=== PATIENT | female | born 1990 | race Caucasian/White ===

== ENCOUNTER 2018-01-07 15:09 | Outpatient (CLI) | payer BC ==
[2018-01-07 16:02] LABS: APPEARANCE,URINE CLEAR; BILIRUBIN,URINE NEGATIVE (NEGATIVE); COLOR,URINE YELLOW; GLUCOSE, URINE NEGATIVE (NEGATIVE); KETONES,URINE NEGATIVE (NEGATIVE); LEUKOCYTE ESTERASE,URINE NEGATIVE (NEGATIVE); NITRITE,URINE NEGATIVE (NEGATIVE); PROTEIN,URINE NEGATIVE (NEGATIVE); URINE SPECIFIC GRAVITY 1.026
[2018-01-07 16:25] LABS: URINE AMPHETAMINES SCREEN NEGATIVE; URINE BARBITURATES SCREEN NEGATIVE; URINE BENZODIAZEPINES SCREEN NEGATIVE; URINE COCAINE SCREEN NEGATIVE; URINE MARIJUANA (THC) SCREEN NEGATIVE; URINE METHADONE SCREEN NEGATIVE; URINE PHENCYCLIDINE SCREEN NEGATIVE
== END 2018-01-07 16:25 | disposition home or self-care (01) ==
LOC: LC 15:09
PROVIDERS: ATTEND Obstetrics & Gynecology
PROC: 4A1HXCZ Monitoring of Products of Conception, Cardiac Rate, External Approach (ICD-10-PCS; principal; 2018-01-07)
DX: O47.02 False labor before 37 completed weeks of gestation, second trimester (principal); Z3A.24 24 weeks gestation of pregnancy
CPT/HCPCS: 80307; 81001

== ENCOUNTER 2018-01-08 03:18 | Emergency (ER) | payer BC ==
--- NOTE | 2018-01-08 04:30 | ER Document Report ---
ED General - General Mode of Arrival: Ambulatory Information source: Patient TRAVEL OUTSIDE OF THE [place] IN LAST 30 DAYS: No <BRY SANDOVAL - Last Filed: 01/08/18 04:58> <AMY BOLANOS - Last Filed: 01/09/18 15:53> - General Chief Complaint: Abdominal Pain Stated Complaint: ABDOMINAL PAIN Time Seen by Provider: 01/08/18 04:13 Notes: Patient is a 28-year-old female approximately 24 weeks presents the emergency department complaining of right lower quadrant pain onset around 11 AM yesterday. Patient describes the abdominal pain as a waxing and waning that radiates into her back. She states that she has taken Tylenol with no relief. She also complains of clamminess and nausea. Patient denies any vomiting, diarrhea, vaginal discharge, dysuria, burning with urination. Patient states that she went to labor and delivery yesterday complaining of similar symptoms and was discharged with a diagnosis of dehydration. (BRY SANDOVAL) - Related Data Allergies/Adverse Reactions: No Known Allergies Allergy (Unverified 01/07/18 16:27) Past Medical History - General Information source: Patient - Social History Smoking Status: Never Smoker Chew tobacco use (# tins/day): No Frequency of alcohol use: None Drug Abuse: None Family History: Reviewed & Not Pertinent Patient has suicidal ideation: No Patient has homicidal ideation: No Renal/ Medical History: Reports: Hx Kidney Stones <BRY SANDOVAL - Last Filed: 01/08/18 04:58> Review of Systems - Review of Systems Constitutional: See HPI EENT: No symptoms reported Cardiovascular: No symptoms reported Respiratory: No symptoms reported Gastrointestinal: See HPI, Abdominal pain Genitourinary: No symptoms reported Female Genitourinary: No symptoms reported Musculoskeletal: No symptoms reported Skin: No symptoms reported Hematologic/Lymphatic: No symptoms reported Neurological/Psychological: No symptoms reported -: Yes All other systems reviewed and negative <BRY SANDOVAL - Last Filed: 01/08/18 04:58> Physical Exam <BRY SANDOVAL - Last Filed: 01/08/18 04:58> <AMY BOLANOS - Last Filed: 01/09/18 15:53> - Vital signs Vitals: Temp Pulse Resp BP Pulse Ox 98.6 F 91 18 127/74 H 100 10/06/18 03:23 01/08/18 03:23 01/08/18 03:23 01/08/18 03:23 01/08/18 03:23 - Notes Notes: GENERAL: Alert, interacts well. No acute distress. HEAD: Normocephalic, atraumatic. EYES: Pupils equal, round, and reactive to light. Extraocular movements intact. ENT: Oral mucosa moist, tongue midline. NECK: Full range of motion. Supple. Trachea midline. LUNGS: Clear to auscultation bilaterally, no wheezes, rales, or rhonchi. No respiratory distress. HEART: Regular rate and rhythm. No murmurs, gallops, or rubs. ABDOMEN: Gravid, tender to palpation to the McBurney's point, no guarding or rebound. Bowel sounds present in all 4 quadrants. EXTREMITIES: Moves all 4 extremities spontaneously. NEUROLOGICAL: Alert and oriented x3. Normal speech. Negative Rovsing's, psoas and obturator sign. PSYCH: Normal affect, normal mood. SKIN: Warm, dry, normal turgor. No rashes or lesions noted. BACK: No CVA tenderness to palpation. (BRY SANDOVAL) Course <BRY SANDOVAL - Last Filed: 01/08/18 04:58> - Laboratory Result Diagrams: 01/08/18 04:15 01/08/18 04:15 <AMY BOLANOS - Last Filed: 01/09/18 15:53> - Re-evaluation Re-evalutation: 01/08/18 05:46 Ultrasound does not visualize appendix. Patient's inflammatory markers including her white blood cell count and her CRP are within normal limits. She has not had any vaginal discharge loss of fluids or contractions. She was seen by her OB GEN yesterday with normal heart tones. No UTI. Patient has normal vitals and she is not febrile. I discussed findings with patient. She did not have a obturator sign,Rovsing sign or psoas sign. She did have some tenderness to palpation in her right lower quadrant around McBurney's point. I discussed with her she needs follow-up in the next 24-36 hours for reevaluation or sooner if she begins to develop any fevers chills or vomiting. She does endorse that her bowel movements and not been as regular as a normal sized her to drink plenty of water and to be reevaluated with return precautions provided. The fact that her symptoms have been going on since yesterday and she has no fever no vomiting no inflammatory markers felt that imaging was not warranted at this time. Patient understands and agrees with plan of reevaluation. 01/08/18 05:49 01/08/18 05:49 (AMY BOLANOS) - Vital Signs Vital signs: Temp Pulse Resp BP Pulse Ox 98.4 F 90 18 118/68 100 01/08/18 06:32 01/08/18 06:32 01/08/18 06:32 01/08/18 06:32 01/08/18 06:32 - Laboratory Laboratory results interpreted by me: 01/08/18 01/08/18 04:15 04:15 RBC 3.41 L Hgb 10.9 L Hct 31.0 L Chloride 111 H Carbon Dioxide 21 L Creatinine 0.41 L Total Protein 6.1 L Albumin 2.9 L Discharge <BRY SANDOVAL - Last Filed: 01/08/18 04:58> <AMY BOLANOS - Last Filed: 01/09/18 15:53> - Discharge Clinical Impression: Abdominal pain during intrauterine Condition: Good Disposition: HOME, SELF-CARE Instructions: Abdominal Pain ([facility]), Observation for Appendicitis ([facility]) Additional Instructions: Please follow-up in the next 24-36 hours for reevaluation or sooner if you begin to develop any fevers chills nausea or worsening of pain Referrals: BRANDON HERNANDEZ MD [Primary Care Provider] - Follow up as needed Scribe Attestation: 01/09/18 15:52 I personally performed the services described in the documentation, reviewed and edited the documentation which was dictated to the scribe in my presence, and it accurately records my words and actions. (AMY BOLANOS) Scribe Documentation - Scribe Written by Brian:: Brian Ortiz, 01/08/2018 04:32 acting as scribe for :: Frederick <BRY SANDOVAL - Last Filed: 01/08/18 04:58>
[2018-01-08 05:09] LABS: ABSOLUTE EOSINOPHILS # (AUTO) 0.1 10^3/uL (0.0-0.6); ABSOLUTE LYMPHOCYTES (AUTO) 1.5 10^3/uL (0.5-4.7); ABSOLUTE MONOCYTES (AUTO) 0.5 10^3/uL (0.1-1.4); ABSOLUTE NEUT (AUTO) 4.6 10^3/uL (1.7-8.2); BASOPHILS % (AUTO) 0.5 % (0-2); EOSINOPHILS % (AUTO) 0.8 % (0-6); HEMOGLOBIN 10.9 g/dL (12.0-15.5); MEAN CORPUSCULAR HEMOGLOBIN 31.9 pg (27.0-33.4); MEAN CORPUSCULAR HGB CONC 35.1 g/dL (32.0-36.0); MEAN CORPUSCULAR VOLUME 91 fl (80-97); MONOCYTES % (AUTO) 7.2 % (3-13); PLATELET COUNT 207 10^3/uL (150-450); RED BLOOD COUNT 3.41 10^6/uL (3.72-5.28); RED CELL DISTRIBUTION WIDTH 13.4 % (11.5-14.0); SEGMENTED NEUTROPHILS % (AUTO) 69.5 % (42-78); TOTAL CELLS COUNTED % (AUTO) 100 %; WHITE BLOOD COUNT 6.6 10^3/uL (4.0-10.5)
[2018-01-08 05:18] LABS: ALANINE AMINOTRANSFERASE 28 U/L (9-52); ALBUMIN 2.9 g/dL (3.5-5.0); ALKALINE PHOSPHATASE 69 U/L (38-126); ANION GAP 7 (5-19); ASPARTATE AMINO TRANSFERASE 28 U/L (14-36); BILIRUBIN,DIRECT 0.3 mg/dL (0.0-0.4); BILIRUBIN,TOTAL 0.3 mg/dL (0.2-1.3); BLOOD UREA NITROGEN 9 mg/dL (7-20); C-REACTIVE PROTEIN 7.6 mg/L (<10.0); CALCIUM 8.5 mg/dL (8.4-10.2); CARBON DIOXIDE 21 mmol/L (22-30); CHLORIDE 111 mmol/L (98-107); GLUCOSE 91 mg/dL (75-110); LIPASE 85.8 U/L (23-300); POTASSIUM 3.8 mmol/L (3.6-5.0); SODIUM 138.6 mmol/L (137-145); TOTAL PROTEIN 6.1 g/dL (6.3-8.2)
[2018-01-08 05:25] LABS: APPEARANCE,URINE CLEAR; BILIRUBIN,URINE NEGATIVE (NEGATIVE); COLOR,URINE YELLOW; GLUCOSE, URINE NEGATIVE (NEGATIVE); KETONES,URINE NEGATIVE (NEGATIVE); LEUKOCYTE ESTERASE,URINE NEGATIVE (NEGATIVE); NITRITE,URINE NEGATIVE (NEGATIVE); PROTEIN,URINE NEGATIVE (NEGATIVE); URINE SPECIFIC GRAVITY 1.015; UROBILINOGEN,URINE NEGATIVE mg/dL (<2.0)
--- NOTE | 2018-01-08 05:28 | RADIOLOGY REPORT (SQ) ---
EXAM DESCRIPTION: US ABDOMEN DOPPLER LIMITED COMPLETED DATE/TME: 01/08/2018 04:23 CLINICAL HISTORY: 28 years, Female, RLQ pain COMPARISON: None. TECHNIQUE: Ultrasound images of the right lower quadrant. FINDINGS: The appendix is not identified. No free fluid identified. IMPRESSION: 1. The appendix is not visualized. No secondary sonographic signs of acute appendicitis. 2011 [facility] [employer]- All Rights Reserved
[2018-01-08 06:38] VITALS: BP 118/68
== END 2018-01-08 06:38 | disposition home or self-care (01) ==
LOC: ER 03:18
DX: O26.892 Other specified pregnancy related conditions, second trimester (principal); R10.31 Right lower quadrant pain; R11.0 Nausea; Z3A.24 24 weeks gestation of pregnancy
CPT/HCPCS: 36415; 76705; 80053; 81001; 83690; 85025; 86140; 93976; 99284

== ENCOUNTER → 2018-03-07 | Outpatient (CLI) | payer BC | LOC: OD 11:03 | PROVIDERS: ATTEND Obstetrics & Gynecology | DX: R07.0 Pain in throat (principal) | CPT/HCPCS: 87070; 87880 ==

== ENCOUNTER 2018-05-03 20:12 | Inpatient (IN) | payer BC ==
[2018-05-03] MEDS: RINGERS SOLUTION,LACTATED 1,000 ML IV PRN (20:59)
[2018-05-03 21:20] LABS: APPEARANCE,URINE SLIGHTLY-CLOUDY; BILIRUBIN,URINE NEGATIVE (NEGATIVE); COLOR,URINE YELLOW; GLUCOSE, URINE NEGATIVE (NEGATIVE); KETONES,URINE NEGATIVE (NEGATIVE); LEUKOCYTE ESTERASE,URINE TRACE (NEGATIVE); NITRITE,URINE NEGATIVE (NEGATIVE); PROTEIN,URINE 100 mg/dL (NEGATIVE); URINE SPECIFIC GRAVITY 1.024; UROBILINOGEN,URINE NEGATIVE mg/dL (<2.0)
[2018-05-03 21:25] LABS: ABSOLUTE LYMPHOCYTES (AUTO) 1.2 10^3/uL (0.5-4.7); ABSOLUTE MONOCYTES (AUTO) 0.6 10^3/uL (0.1-1.4); ABSOLUTE NEUT (AUTO) 6.8 10^3/uL (1.7-8.2); BASOPHILS % (AUTO) 0.3 % (0-2); EOSINOPHILS % (AUTO) 0.3 % (0-6); HEMATOCRIT 28.6 % (36.0-47.0); HEMOGLOBIN 9.6 g/dL (12.0-15.5); LYMPHOCYTES % (AUTO) 13.7 % (13-45); MEAN CORPUSCULAR HEMOGLOBIN 28.5 pg (27.0-33.4); MEAN CORPUSCULAR HGB CONC 33.7 g/dL (32.0-36.0); MEAN CORPUSCULAR VOLUME 85 fl (80-97); MONOCYTES % (AUTO) 6.7 % (3-13); PLATELET COUNT 127 10^3/uL (150-450); RED BLOOD COUNT 3.39 10^6/uL (3.72-5.28); RED CELL DISTRIBUTION WIDTH 13.9 % (11.5-14.0); TOTAL CELLS COUNTED % (AUTO) 100 %; WHITE BLOOD COUNT 8.6 10^3/uL (4.0-10.5)
[2018-05-03 21:50] LABS: URINE AMPHETAMINES SCREEN NEGATIVE; URINE BARBITURATES SCREEN NEGATIVE; URINE BENZODIAZEPINES SCREEN NEGATIVE; URINE COCAINE SCREEN NEGATIVE; URINE MARIJUANA (THC) SCREEN NEGATIVE; URINE METHADONE SCREEN NEGATIVE; URINE PHENCYCLIDINE SCREEN NEGATIVE
[2018-05-03] MEDS ORDERED: OXYTOCIN/NORMAL SALINE 20 UNIT/1,000 ML RTUINJ IV PRN (21:56)
[2018-05-03] MEDS ORDERED: DINOPROSTONE 10 MG VAGINAL INSERT.SR PV PRN (21:56)
[2018-05-03] MEDS ORDERED: MISOPROSTOL 0.2 MG TABLET ONE (22:03)
[2018-05-03] MEDS ORDERED: LIDOCAINE 1% INJ-PF (10 MG/ML) 30 ML SDV ONE (22:04)
[2018-05-03] MEDS ORDERED: DINOPROSTONE 10 MG VAGINAL INSERT.SR ONE (22:04)
[2018-05-03] MEDS ORDERED: OXYTOCIN/NORMAL SALINE 20 UNIT/1,000 ML RTUINJ ONE (22:04)
[2018-05-03] MEDS ORDERED: RINGERS SOLUTION,LACTATED 300 ML IV ONE (22:40)
[2018-05-04] MEDS ORDERED: ZOLPIDEM TARTRATE 5 MG TABLET ONE (01:39)
[2018-05-04] MEDS: RINGERS SOLUTION,LACTATED 1,000 ML IV PRN ×2 (05:02→21:05)
--- NOTE | 2018-05-04 06:56 | Admission Physical ---
Datetime Report Generated by CPN: 05/04/2018 06:56 CURRENT ADMISSION Chief Complaint: Uterine Contractions Indication for Induction: Post Dates Admit Impression : Term, Intrauterine ; No Active Labor; Induction of Labor Admit Plan: Admit to Unit; Initiate Labor Induction Protocol ALLERGIES Medication Allergies: No Medication Allergies: No Known Allergies (05/03/2018) Food Allergies: NKA Environmental Allergies: NKA OBSTETRICAL HISTORY EDC: 04/27/2018 00:00 : 1 Para: 0 Term: 0 : 0 SAB: 0 IAB: 0 Ectopic: 0 Livin Cesareans: 0 VBACs: 0 Multiple Births: 0 Gestational Diabetes: No Rh Sensitization: No Incompetent Cervix: No ERNIE: No Infertility: No ART Treatment: No Uterine Anomaly: No IUGR: No Hx Previous C/S: No Macrosomia: No Hx Loss/Stillborn: No PIH: No Hx : No Placenta Previa/Abruption: No Depression/PP Depression: No PTL/PROM: No Post Hemorrhage: No Current Procedures: Ultrasound; NST Obstetrical History Comments: G1 - Current SEE RECORDS Alcohol: No Marijuana : No Cocaine: No Other Illicit Drugs: No Cigarettes: Former Smoker. [id number] MEDICAL HISTORY Diabetes: No Blood Transfusion: No Pulmonary Disease (Asthma, TB): No Breast Disease: No Hypertension: No Production Crew Supervisor Surgery: No Heart Disease: No Hosp/Surgery: Yes Autoimmune Disorder: No Anesthetic Complications: No Kidney Disease: No Abnormal Pap Smear: No Neuro/Epilepsy: No Psychiatric Disorders: No Other Medical Diseases: No Hepatitis/Liver Disease: No Significant Family History: No Varicosities/Phlebitis: No Trauma/Violence : No Thyroid Dysfunction: No Medical History Comments: Hospitalization in 2008 for kidney infection INFECTIOUS HISTORY Gonorrhea: No Genital Herpes: No Chlamydia: No Tuberculosis: No Syphilis: No Hepatitis: No HIV/AIDS Exposure: No Rash or Viral Illness: No HPV: No PHYSICAL EXAM General: Normal HEENT: Normal Neurologic: Normal Thyroid: Normal Heart: Normal Lungs: Normal Breast: Normal Back: Normal Abdomen: Normal Genitourinary Exam: Normal Extremities: Normal DTRs: Normal Pelvic Type: Adequate Vital Signs: Reviewed; Within Normal Limits VAGINAL EXAM Dilatation: 1 Effacement: 50 Station: -3 MEMBRANES Pooling: Negative Membranes: Intact FETUS A EGA: 41.0 Monitoring: External US FHR- Baseline: 130 Variability: Moderate 6-25bpm Accelerations: 15X15 Decelerations: None FHR Category: Category I Estimated Weight (gm): 3500 Presentation: Vertex Admit Comment: cervidil for cervical ripening PLANS FOR LABOR AND DELIVERY Labor and Delivery: None Pain Management: Epidural Feeding Preference: Breast Benefit of Breast Feed Discussed: Yes Circumcision: N/A INFORMED CONSENT Signature: with User ID: [email or web address]
[2018-05-04] MEDS ORDERED: OXYTOCIN/NORMAL SALINE 20 UNIT/1,000 ML RTUINJ ONE (10:27)
[2018-05-04] MEDS ORDERED: PROMETHAZINE HCL INJ 25 MG/1 ML VIAL IV ONE ×2 (11:21→19:36)
[2018-05-04] MEDS ORDERED: NALBUPHINE HCL INJ 10 MG/1 ML AMPULE IV ONE (11:21)
[2018-05-04] MEDS ORDERED: NALBUPHINE HCL INJ 10 MG/1 ML AMPULE IM ONE (11:21)
[2018-05-04] MEDS ORDERED: PROMETHAZINE HCL INJ 25 MG/1 ML VIAL ONE ×2 (11:23→19:39)
[2018-05-04] MEDS ORDERED: NALBUPHINE HCL INJ 10 MG/1 ML AMPULE ONE ×2 (11:24→19:39)
[2018-05-04 16:45] LABS: ABSOLUTE LYMPHOCYTES (AUTO) 1.3 10^3/uL (0.5-4.7); ABSOLUTE MONOCYTES (AUTO) 0.6 10^3/uL (0.1-1.4); ABSOLUTE NEUT (AUTO) 7.8 10^3/uL (1.7-8.2); BASOPHILS % (AUTO) 0.3 % (0-2); EOSINOPHILS % (AUTO) 0.3 % (0-6); HEMATOCRIT 30.4 % (36.0-47.0); HEMOGLOBIN 10.3 g/dL (12.0-15.5); MEAN CORPUSCULAR HEMOGLOBIN 28.3 pg (27.0-33.4); MEAN CORPUSCULAR HGB CONC 33.9 g/dL (32.0-36.0); MEAN CORPUSCULAR VOLUME 84 fl (80-97); MONOCYTES % (AUTO) 6.6 % (3-13); PLATELET COUNT 133 10^3/uL (150-450); RED BLOOD COUNT 3.64 10^6/uL (3.72-5.28); SEGMENTED NEUTROPHILS % (AUTO) 79.8 % (42-78); TOTAL CELLS COUNTED % (AUTO) 100 %; WHITE BLOOD COUNT 9.7 10^3/uL (4.0-10.5)
[2018-05-04] MEDS ORDERED: NALBUPHINE HCL INJ 10 MG/1 ML AMPULE INJ ONE (19:36)
[2018-05-04] MEDS ORDERED: FENTANYL CITRATE INJ/PF 100 MCG/2 ML AMPUL ONE (23:26)
[2018-05-04] MEDS ORDERED: PHENYLEPHRINE HCL INJ/PF 10 MG/1 ML SDV ONE (23:26)
[2018-05-04] MEDS ORDERED: EPHEDRINE SULFATE INJ 50 MG/1 ML AMPULE ONE (23:26)
[2018-05-04] MEDS ORDERED: FENTANYL/BUPIVACAINE/NS/PF 300 MCG/150 ML RTUINJ EPI ONE (23:26)
[2018-05-04] MEDS ORDERED: LIDOCAINE 1.5%/EPINEPHRINE INJ-PF 30 ML SDV ONE (23:26)
[2018-05-04] MEDS ORDERED: BUPIVACAINE HCL 0.25 % INJ/PF (2.5 MG/1 ML) 30 ML VIAL ONE (23:27)
--- NOTE | 2018-05-05 02:46 | L&D Progress Notes ---
PROGRESS NOTES Datetime Report Generated by CPN: 05/05/2018 02:45 PROGRESS NOTE Impression: Normal Progression of Labor Plan: Continue Present Management Vital Signs : Reviewed; Within Normal Limits Comment: Pt is comfortable--s/p epidural VAGINAL EXAM Dilatation: 1 Effacement: 50 Station: -3 LAST VAGINAL EXAM-NURSING Dilitation: 6.0 Dilitation: 6.0 Dilitation: 4.0 Dilitation: 3.0 Dilitation: 1.0 Dilitation: 1.0 Effacement: 90 Effacement: 90 Effacement: 70 Effacement: 70 Effacement: 60 Effacement: 50 Station: -2 Station: -2 Station: -2 Station: -2 Station: -2 Station: -3 Contractions: Pt denies feeling ctx's Contractions: Abdomen soft upon palpation. Contractions: Abdomen soft upon palpation Contractions: Pt denies feeling ctx's Contractions: Pt denies feeling ctx's; Irregular pattern Contractions: Pt denies feeling ctx's, abdomen soft upon palpation. Contractions: Pt denies feeling ctx's, abdomen soft upon palpation. Contractions: Pt denies feeling ctx's, abdomen soft upon palpation. Contractions: Pt denies feeling ctx's, abdomen soft upon palpation. Contractions: Pt denies feeling ctx's, abdomen soft upn palpation. Contractions: Pt denies feeling ctx's, abdomen soft upon palpation. Contractions: Pt denies feeling ctx's, abdomen soft upon palpation. Contractions: Pt denies feeling ctx's, irregular ctx pattern Contractions: Pt denies feeling ctx's, abdomen soft upon palpation. Contractions: Pt denies feeling ctx's, irregular ctx pattern Contractions: Pt denies feeling ctx's Contractions: Pt denies feeling ctx's, abdomen soft upon palpation. Contractions: Pt denies feeling ctx's, abdomen soft upon palpation. Contractions: Pt denies feeling ctx's Contractions: Pt denies feeling ctx's, abdomen soft upon palpation. MEMBRANES Pooling: Negative Membranes: Ruptured Membranes: Intact FETUS A FHR - Baseline: 120s Monitoring: External US Variability: Moderate 6-25bpm Accelerations: 10X10 Decelerations: None FHR Category: Category I : 41.1 : 41.0 Estimated Weight (gm): 3500 Presentation: Vertex SIGNATURE SIGNATURE: [id number];[id number] SIGNATURE: [id number] Signature: with User ID: [email or web address]
--- NOTE | 2018-05-05 10:07 | L&D Progress Notes ---
PROGRESS NOTES Datetime Report Generated by CPN: 05/05/2018 10:07 PROGRESS NOTE Impression: Arrest of Dilatation/Descent Procedures: Intrauterine Pressure Catheter Plan: Continue Present Management Vital Signs : Reviewed Comment: SVE 09-09/80/0--?cx swelling. IUPC inserted without difficulty. Will monitor over next 2 hrs-if no cervical change and adequate labor, will notify MD re arrest of labor. VAGINAL EXAM Dilatation: 7 Effacement: 80 Station: 0 Dilitation: 7.0 Dilitation: 7.0 Effacement: 100 Effacement: 100 Station: -1 Station: -1 Contractions: IUPC inserted by Tracie Milan CNM MEMBRANES Membranes: Ruptured FETUS A FHR - Baseline: 140 Monitoring: External US : 41.1 FETUS C SIGNATURE: [id number] Assignment: Mega Cordoba MD Signature: with User ID: [email or web address] : with User ID: [email or web address] : I personally evaluated and examined the patient in conjunction with the MLP and agree with the assessment, treatment plan and disposition.
[2018-05-05] MEDS ORDERED: ACETAMINOPHEN 325 MG TABLET ONE (10:24)
[2018-05-05] MEDS ORDERED: ACETAMINOPHEN 325 MG TABLET PO ONE (10:27)
[2018-05-05] MEDS ORDERED: ONDANSETRON HCL INJ/PF 4 MG/2 ML SDV IV ONE (10:30)
[2018-05-05] MEDS ORDERED: ONDANSETRON HCL INJ/PF 4 MG/2 ML SDV ONE ×2 (10:33→13:38)
[2018-05-05 10:51] LABS: HEMATOCRIT 29.8 % (36.0-47.0); HEMOGLOBIN 9.9 g/dL (12.0-15.5); MEAN CORPUSCULAR HEMOGLOBIN 27.7 pg (27.0-33.4); MEAN CORPUSCULAR HGB CONC 33.1 g/dL (32.0-36.0); MEAN CORPUSCULAR VOLUME 84 fl (80-97); PLATELET COUNT 123 10^3/uL (150-450); RED BLOOD COUNT 3.56 10^6/uL (3.72-5.28); RED CELL DISTRIBUTION WIDTH 14.2 % (11.5-14.0); WHITE BLOOD COUNT 12.1 10^3/uL (4.0-10.5)
[2018-05-05] MEDS: RINGERS SOLUTION,LACTATED 1,000 ML IV PRN (11:04)
[2018-05-05 11:08] LABS: ALANINE AMINOTRANSFERASE 28 U/L (9-52); ALKALINE PHOSPHATASE 171 U/L (38-126); ANION GAP 7 (5-19); ASPARTATE AMINO TRANSFERASE 25 U/L (14-36); BILIRUBIN,DIRECT 0.1 mg/dL (0.0-0.4); BILIRUBIN,TOTAL 0.4 mg/dL (0.2-1.3); BLOOD UREA NITROGEN 14 mg/dL (7-20); CALCIUM 8.3 mg/dL (8.4-10.2); CARBON DIOXIDE 22 mmol/L (22-30); CHLORIDE 107 mmol/L (98-107); GLUCOSE 87 mg/dL (75-110); TOTAL PROTEIN 5.9 g/dL (6.3-8.2); URIC ACID 6.1 mg/dL (2.5-6.2)
[2018-05-05 11:34] LABS: UR PRO/CREAT RATIO RESULT 0.9 mg/mg (0.0-0.2); URINE CREATININE 40.7 mg/dL (16-327); URINE PROTEIN 36.3 mg/dL (<12)
[2018-05-05] MEDS ORDERED: DIPHENHYDRAMINE HCL 50 MG/ML VIAL ONE (11:43)
[2018-05-05] MEDS ORDERED: DIPHENHYDRAMINE HCL 50 MG/ML VIAL IV ONE (11:44)
[2018-05-05] MEDS ORDERED: FENTANYL/BUPIVACAINE/NS/PF 300 MCG/150 ML RTUINJ EPI ONE (12:43)
[2018-05-05] MEDS ORDERED: CITRIC ACID/SODIUM CITRATE ORAL SOLN 15 ML UDCUP ONE (13:07)
[2018-05-05] MEDS ORDERED: CEFAZOLIN 2 GM/D5W RTU 2 GM/50 ML RTUPB IV ONE (13:08)
[2018-05-05] MEDS ORDERED: LIDOCAINE 2% INJ-PF (20 MG/ML) 10 ML AMPUL ONE ×2 (13:10→13:49)
[2018-05-05] MEDS ORDERED: OXYTOCIN 10 UNIT/ML VIAL ONE (13:37)
[2018-05-05] MEDS ORDERED: KETOROLAC TROMETHAMINE INJ/PF 30 MG/1 ML SDV ONE (13:38)
[2018-05-05] MEDS ORDERED: MIDAZOLAM 2 MG/2 ML INJ ONE (13:38)
[2018-05-05] MEDS ORDERED: BUPIVACAINE HCL/DEX-WATER/PF 15 MG/2 ML AMPULE ONE (13:38)
[2018-05-05] MEDS ORDERED: FENTANYL CITRATE INJ/PF 100 MCG/2 ML AMPUL ONE ×2 (13:38→13:50)
[2018-05-05] MEDS ORDERED: EPHEDRINE SULFATE INJ 50 MG/1 ML AMPULE ONE (13:38)
[2018-05-05] MEDS ORDERED: ACETAMINOPHEN 1,000 MG/100 ML RTUPB IV ONE (13:38)
[2018-05-05] MEDS ORDERED: OXYTOCIN/NORMAL SALINE 0 UNIT/0 ML RTUINJ ONE (13:38)
[2018-05-05] MEDS ORDERED: METHYLERGONOVINE MALEATE INJ/PF 0.2 MG/1 ML AMPULE ONE (14:11)
[2018-05-05] MEDS ORDERED: PROMETHAZINE HCL INJ 25 MG/1 ML VIAL IV PRN (14:31)
[2018-05-05] MEDS ORDERED: MEASLES,MUMPS&RUBELLA VACC/PF 0.5 ML VIAL SUBCUT PRN (14:31)
[2018-05-05] MEDS ORDERED: DIPH/PERTUSS(ACELL)/TETANUS VAC/PF 0.5 ML SYR (>=10YO) IM PRN (14:31)
[2018-05-05] MEDS ORDERED: OXYCODONE-ACETAMINOPHEN 5-325 MG TABLET PO PRN (14:31)
[2018-05-05] MEDS ORDERED: ACETAMINOPHEN 1,000 MG/100 ML RTUPB IV PRN (14:31)
[2018-05-05] MEDS ORDERED: OXYTOCIN/NORMAL SALINE 20 UNIT/1,000 ML RTUINJ IV PRN (14:31)
[2018-05-05] MEDS ORDERED: ACETAMINOPHEN 325 MG TABLET PO PRN (14:31)
--- NOTE | 2018-05-05 15:04 | OPERATIVE REPORT E ---
Operative Report NAME: YOHAN COLUNGA : 1990 AGE: 28Y DATE OF SURGERY: 05/05/2018 ROOM: LR200 PREOPERATIVE DIAGNOSIS: INTRAUTERINE POST DATES, FAILURE TO PROGRESS, CHORIOAMNIONITIS. POSTOPERATIVE DIAGNOSIS: INTRAUTERINE POST DATES, FAILURE TO PROGRESS, CHORIOAMNIONITIS. OPERATION: PRIMARY LOW TRANSVERSE WITH DELIVERY OF VIABLE FEMALE, APGARS 8-9, 7 POUNDS AND 1 OUNCE. ESTIMATED BLOOD LOSS: Less than 600 mL. SURGEON: Tamra BASSETT M.D. ANESTHESIA: Epidural. TISSUE REMOVED OR ALTERED: Placenta. PROCEDURE: The patient was placed in supine position and rolled onto her right side, prepped and draped in sterile fashion. Pfannenstiel incision was made and the incision extended through subcutaneous tissue and *------* rectus muscles *------*. Peritoneum was entered with sharp dissection. Uterus nicked in the midline and extended bilaterally. The infant was then delivered through the uterine and abdominal incision. Nose and mouth suctioned with the bulb. Cord was clamped. The infant was passed from the table. Placenta was manually extracted. Uterus closed in two layers, first with running stitch of 0 Vicryl, second with Lembert sutures imbricating the first layer. Several areas of bleeding were noted and controlled with [id number] sutures of 0 Vicryl. Hemostasis was noted. Fascia closed with #1 Vicryl. Skin was closed with subcu absorbable martha. Her urine remained clear throughout the procedure and she was taken to the recovery room in good condition. Infant went to the nursery in good condition. DICTATING PHYSICIAN: Tamra BASSETT M.D. [id number] PHY#: [id number] ID: [id number] JOB#: [id number] ACCT: [id number] cc:Tamra BASSETT M.D. >
[2018-05-05] MEDS ORDERED: AMPICILLIN SOD INJ 2 GM VIAL ONE (15:21)
[2018-05-05] MEDS ORDERED: AMPICILLIN SOD INJ 2 GM VIAL IV ONE (16:00)
[2018-05-05] MEDS ORDERED: AMPICILLIN SOD INJ 1 GM VIAL IV SCH (16:17)
[2018-05-05] MEDS ORDERED: MORPHINE SULFATE 10 MG/ML INJ ONE (16:37)
[2018-05-05] MEDS: MORPHINE SULFATE 10 MG/ML INJ IM PRN (16:39)
--- NOTE | 2018-05-05 17:25 | Delivery Summary ---
Del Sum A-C Datetime Report Generated by CPN: 05/05/2018 17:25 DELIVERY PERSONNEL DELIVERY PERSONNEL: [id number] Delivery Doctor:: Mega Cordoba MD Anesthesiologist:: Tico Renae MD EQUIPMENT INSTALLER:: Cody Samaniego CRNA Labor and Delivery Nurse:: Janelle Meza RNhouse mover supervisor Nurse:: Chacorta Gomez RN Supervisor Car Installations:: Janelle Meza RN Neonatal Nurse Practitioner:: DAREN Schwab Nursery Nurse:: Amelia Spencer RN Financial Institution Vice President/READINESS PARAPROFESSIONAL: ST Lina Financial Institution Vice President/READINESS PARAPROFESSIONAL: Eveline Miller CST Additional Personnel: : Lauren Giron RN MATERNAL INFORMATION Delivery Anesthesia: Epidural Medications After Delivery: Pitocin Bolus-Please Comment; Methergine 0.2mg IM Meds After Delivery Comment: pitocin 20 units in 1 L NS bolusing per order Maternal Complications: Chorioamnionitis; Maternal Fever Provider Comments: probable chorioamnionitis LABOR SUMMARY EDC: 04/27/2018 00:00 No. Babies in Womb: 1 Attempted: No Labor Anesthesia: Epidural LABOR INFORMATION Reason for Induction: Post Dates Onset of Labor: 05/05/2018 03:00 Cervical Ripening Agents: Cervidil Oxytocin: Induction Group B Beta Strep: Negative Antibiotics # of Doses: 0 Steroids Given: None Reason Steroids Not Administered: Not Applicable MEMBRANES Membranes Rupture Method: Artificial Rupture of Membranes: 05/04/2018 14:42 Length of Rupture (hr): 23.42 Amniotic Fluid Color: Clear Amniotic Fluid Amount: Small Amniotic Fluid Odor: Normal STAGES OF LABOR Stage 3 hr: 0 Stage 3 min: 1 Total Time in Labor hr: 11 Total Time in Labor min: 8 VAGINAL DELIVERY Episiotomy: None Laceration #1: None Laceration Extension #1: N/A Laceration Repair: Not Applicable Sponge Count Correct: N/A Sharps Count Correct: N/A CSECTION DELIVERY Primary Indication: Secondary Arrest of Dilatation Secondary Indication: Arrest of Descent CSection Urgency: Non-Scheduled CSection Incidence: Primary Labor: Labor Elective: Nonelective CSection Incision: Lower Uterine Transverse BABY A INFORMATION Infant Delivery Date/Time: 05/05/2018 14:07 Method of Delivery: Born in Route : No : N/A Forceps: N/A Vacuum Extraction: N/A Shoulder Dystocia : No PRESENTATION/POSITION BABY A Presentation: Cephalic Cephalic Presentation: Vertex Breech Presentation: N/A PLACENTA INFORMATION BABY A Placenta Delivery Time : 05/05/2018 14:08 Placenta Method of Delivery: Manual Removal Placenta Status: Delivered SCORES BABY A Heart Rate 1 min: >100 bpm Resp Effort 1 min: Good Cry Reflex Irritability 1 min: Cough or Sneeze or Pulls Away Muscle Tone 1 min: Active Motion Color 1 min: Blue/Pale Resuscitation Effort 1 min: Tactile Stimulation SCORE 1 MIN: 8 Heart Rate 5 min: >100 bpm Resp Effort 5 min: Good Cry Reflex Irritability 5 min: Cough or Sneeze or Pulls Away Muscle Tone 5 min: Active Motion Color 5 min: Body [place], Extremities Blue Resuscitation Effort 5 min: Tactile Stimulation SCORE 5 MIN: 9 INFORMATION BABY A Gestational Age at Delivery: 41.1 Gestational Status: Late Term- 41- 41.6 Weeks Outcome : Liveborn Infant Condition : Stable Infant Sex: Female IDENTIFICATION BABY A Infant Verification Date/Time: 05/05/2018 14:08 ID Band Number: [id number] Mother's Name Verified: Yes Infant RN Verifying Infant: C. Daniels, RN T Jason, RN WEIGHT/LENGTH BABY A Birthweight (gm): 3205 Infant Weight (lb): 7 Infant Weight (oz): 1 Length (in): 18.50 Infant Length (cm): 46.99 CORD INFORMATION BABY A No. Cord Vessels: 3 Nuchal Cord : N/A Cord Blood Taken: Yes-For Eval (Mom's Blood Type - or O+) Infant Suction: None ASSESSMENT BABY A Infant Complications: Decreased Variability; Multiple Late Decels Physical Findings at Delivery: Within Normal Limits Skin to Skin: No Floor Mechanic/ALS Called : No Infant Care By: A KISHORE, RN Transferred To: [facility] BABY B INFORMATION : N/A SIGNATURES Signature: with User ID: [email or web address] : I personally evaluated and examined the patient in conjunction with the MLP and agree with the assessment, treatment plan and disposition.
[2018-05-05] MEDS: DOCUSATE SODIUM 100 MG CAPSULE PO SCH (18:20)
[2018-05-05] MEDS: OXYCODONE-ACETAMINOPHEN 5-325 MG TABLET PO PRN (18:20)
[2018-05-05] MEDS: KETOROLAC TROMETHAMINE INJ/PF 30 MG/1 ML SDV IV SCH (21:31)
[2018-05-05] MEDS: AMPICILLIN SODIUM 1 GM in NORMAL SALINE 50 ML IV SCH (21:31)
[2018-05-06] MEDS: AMPICILLIN SODIUM 1 GM in NORMAL SALINE 50 ML IV SCH ×4 (02:38→22:32)
[2018-05-06] MEDS: OXYCODONE-ACETAMINOPHEN 5-325 MG TABLET PO PRN ×4 (02:38→22:42)
[2018-05-06] MEDS: KETOROLAC TROMETHAMINE INJ/PF 30 MG/1 ML SDV IV SCH ×2 (05:23→13:01)
[2018-05-06 07:16] LABS: HEMATOCRIT 22.3 % (36.0-47.0); MEAN CORPUSCULAR HEMOGLOBIN 27.8 pg (27.0-33.4); MEAN CORPUSCULAR HGB CONC 33.2 g/dL (32.0-36.0); MEAN CORPUSCULAR VOLUME 84 fl (80-97); RED BLOOD COUNT 2.66 10^6/uL (3.72-5.28); RED CELL DISTRIBUTION WIDTH 14.6 % (11.5-14.0); WHITE BLOOD COUNT 9.3 10^3/uL (4.0-10.5)
[2018-05-06 08:07] LABS: HEMOGLOBIN 7.4 g/dL (12.0-15.5)
[2018-05-06] MEDS: MORPHINE SULFATE 10 MG/ML INJ IM PRN (08:11)
--- NOTE | 2018-05-06 09:01 | PDOC PROGRESS REPORT ---
Subjective-OB Progress Note for:: 05/06/18 Subjective: Laying in bed, hsb at BS and baby, eating bkf, no nausea, poole out, has not been OOB, incisional pain Physical Exam (OB) Vital Signs: Temp Pulse Resp BP Pulse Ox 97.8 F 98 18 141/86 H 94 05/06/18 08:14 05/06/18 08:14 05/06/18 08:14 05/06/18 08:14 05/06/18 08:14 Intake & Output 05/05/18 05/06/18 05/07/18 06:59 06:59 06:59 Intake Total 1999 4290 Output Total 600 Balance 1999 3690 - PIH/Pre-Eclampsia DTR's: 1 + Clonus: Negative Headache: Absent Epigastric Pain: No Visual Changes: No - Dressing Removed: No Incision: Dressing Closure Type: pressure - Lochia Lochia Amount: Scant < 10 ml Lochia Color: Rubra/Red - Abdomen Description: Soft, Round Hernia Present: No Fundal Description: Firm, Midline Fundal Height: u/u - u/2 Objective-Diagnostic Laboratory: 05/06/18 06:42 05/05/18 10:38 05/05/18 05/05/18 05/06/18 10:38 10:38 06:42 WBC 12.1 H 9.3 RBC 3.56 L 2.66 L Hgb 9.9 L 7.4 L D Hct 29.8 L 22.3 L MCV 84 84 MCH 27.7 27.8 MCHC 33.1 33.2 RDW 14.2 H 14.6 H Plt Count 123 L Sodium 136.0 L Potassium 4.0 Chloride 107 Carbon Dioxide 22 Anion Gap 7 BUN 14 Creatinine 0.65 Est GFR ( Amer) > 60 Est GFR (Non-Af Amer) > 60 Glucose 87 Uric Acid 6.1 Calcium 8.3 L Total Bilirubin 0.4 AST 25 ALT 28 Alkaline Phosphatase 171 H Total Protein 5.9 L Albumin 3.0 L Assessment and Plan(PN) - Assessment and Plan (1) Arrest of descent, delivered, current hospitalization Is this a current diagnosis for this admission?: Yes (2) delivery delivered Is this a current diagnosis for this admission?: Yes (3) Maternal fever during labor Is this a current diagnosis for this admission?: Yes (4) Chorioamnionitis, delivered, current hospitalization Is this a current diagnosis for this admission?: Yes - Time Spent with Patient Time with patient: Less than 15 minutes Medications reviewed and adjusted accordingly: Yes - Disposition Anticipated Discharge: Home Within: within 48 hours
[2018-05-06] MEDS: DOCUSATE SODIUM 100 MG CAPSULE PO SCH ×2 (10:08→18:35)
[2018-05-06] MEDS: PRENATAL VITAMIN W DHA CAPSULE PO SCH (10:08)
[2018-05-06 10:10] LABS: PLATELET COUNT 62 10^3/uL (150-450)
[2018-05-06] MEDS: SIMETHICONE 80 MG TAB.CHEW PO PRN ×2 (10:47→22:43)
[2018-05-06] MEDS: IBUPROFEN 800 MG TABLET PO SCH (18:36)
[2018-05-06 19:19] LABS: HEMATOCRIT 22.4 % (36.0-47.0); MEAN CORPUSCULAR HEMOGLOBIN 28.3 pg (27.0-33.4); MEAN CORPUSCULAR HGB CONC 33.6 g/dL (32.0-36.0); MEAN CORPUSCULAR VOLUME 84 fl (80-97); RED BLOOD COUNT 2.66 10^6/uL (3.72-5.28); RED CELL DISTRIBUTION WIDTH 14.4 % (11.5-14.0); WHITE BLOOD COUNT 12.2 10^3/uL (4.0-10.5)
[2018-05-06 19:24] LABS: HEMOGLOBIN 7.5 g/dL (12.0-15.5); PLATELET COUNT 155 10^3/uL (150-450)
[2018-05-07] MEDS: IBUPROFEN 800 MG TABLET PO SCH ×5 (01:14→23:46)
[2018-05-07] MEDS: MORPHINE SULFATE 10 MG/ML INJ IM PRN (01:14)
[2018-05-07] MEDS: KETOROLAC TROMETHAMINE INJ/PF 30 MG/1 ML SDV IV SCH ×2 (02:51→07:43)
[2018-05-07] MEDS: AMPICILLIN SODIUM 1 GM in NORMAL SALINE 50 ML IV SCH ×2 (03:41→10:06)
[2018-05-07] MEDS: OXYCODONE-ACETAMINOPHEN 5-325 MG TABLET PO PRN ×3 (06:17→21:26)
--- NOTE | 2018-05-07 09:16 | PDOC PROGRESS REPORT ---
Subjective-OB Progress Note for:: 05/07/18 Subjective: OOB in room with hsb, feeling better today, scant bleeding, breastfeesing Physical Exam (OB) Vital Signs: Temp Pulse Resp BP Pulse Ox 97.6 F 93 16 143/96 H 96 05/07/18 07:37 05/07/18 07:37 05/07/18 07:37 05/07/18 07:37 05/07/18 07:37 Intake & Output 05/06/18 05/07/18 05/08/18 06:59 06:59 06:59 Intake Total 4290 1180 Output Total 600 Balance 3690 1180 - PIH/Pre-Eclampsia DTR's: 1 + Clonus: Negative Headache: Absent Epigastric Pain: No Visual Changes: No - Dressing Removed: Yes - silk tape dressing removed; peripad in place over incision Incision: Open Closure Type: Sutures - Lochia Lochia Amount: Scant < 10 ml Lochia Color: Rubra/Red - Abdomen Description: Tender, Soft Hernia Present: No Fundal Description: Firm, Midline Fundal Height: u/u - u/2 Objective-Diagnostic Laboratory: 05/06/18 18:40 05/05/18 10:38 05/06/18 05/06/18 06:42 18:40 WBC 12.2 H RBC 2.66 L Hgb 7.4 L D 7.5 L Hct 22.4 L MCV 84 MCH 28.3 MCHC 33.6 RDW 14.4 H Plt Count 62 L 155 D Assessment and Plan(PN) - Assessment and Plan (1) Arrest of descent, delivered, current hospitalization Is this a current diagnosis for this admission?: Yes (2) delivery delivered Is this a current diagnosis for this admission?: Yes (3) Maternal fever during labor Is this a current diagnosis for this admission?: Yes (4) Chorioamnionitis, delivered, current hospitalization Is this a current diagnosis for this admission?: Yes - Time Spent with Patient Time with patient: Less than 15 minutes Medications reviewed and adjusted accordingly: Yes - Disposition Anticipated Discharge: Home Within: within 24 hours
[2018-05-07] MEDS: PRENATAL VITAMIN W DHA CAPSULE PO SCH (10:06)
[2018-05-07] MEDS: DOCUSATE SODIUM 100 MG CAPSULE PO SCH ×2 (10:06→18:09)
[2018-05-08] MEDS: IBUPROFEN 800 MG TABLET PO SCH ×2 (05:19→12:00)
--- NOTE | 2018-05-08 09:58 | PDOC PROGRESS REPORT ---
Subjective-OB Progress Note for:: 05/08/18 Subjective: Doing better, sitting up in chair, legs remain edematous, voiding, ambulating, eating well, hsb at BS, ready to go home Physical Exam (OB) Vital Signs: Temp Pulse Resp BP Pulse Ox 98.3 F 83 18 148/96 H 97 05/08/18 04:12 05/08/18 07:59 05/08/18 07:59 05/08/18 07:59 05/08/18 07:59 Intake & Output 05/07/18 05/08/18 05/09/18 06:59 06:59 06:59 Intake Total 1180 Balance 1180 - PIH/Pre-Eclampsia DTR's: 1 + Clonus: Negative Headache: Absent Epigastric Pain: No Visual Changes: No - Dressing Removed: - open to air Incision: Well Approximated Closure Type: Surgical Glue - Lochia Lochia Amount: Scant < 10 ml Lochia Color: Rubra/Red - Abdomen Description: Tender, Soft Hernia Present: No Fundal Description: Firm, Midline Fundal Height: u/u - u/2 Objective-Diagnostic Laboratory: 05/06/18 18:40 05/05/18 10:38 Assessment and Plan(PN) - Assessment and Plan (1) Arrest of descent, delivered, current hospitalization Is this a current diagnosis for this admission?: Yes (2) delivery delivered Is this a current diagnosis for this admission?: Yes (3) Maternal fever during labor Is this a current diagnosis for this admission?: Yes (4) Chorioamnionitis, delivered, current hospitalization Is this a current diagnosis for this admission?: Yes - Time Spent with Patient Time with patient: Less than 15 minutes Medications reviewed and adjusted accordingly: Yes - Disposition Anticipated Discharge: Home Within: within 24 hours
[2018-05-08] MEDS: PRENATAL VITAMIN W DHA CAPSULE PO SCH (10:08)
[2018-05-08] MEDS: DOCUSATE SODIUM 100 MG CAPSULE PO SCH (10:08)
--- NOTE | 2018-05-08 10:09 | PDOC DISCHARGE SUMMARY ---
Final Diagnosis Discharge Date: 05/08/18 - Final Diagnosis (1) Arrest of descent, delivered, current hospitalization Is this a current diagnosis for this admission?: Yes (2) delivery delivered Is this a current diagnosis for this admission?: Yes (3) Maternal fever during labor Is this a current diagnosis for this admission?: Yes (4) Chorioamnionitis, delivered, current hospitalization Is this a current diagnosis for this admission?: Yes Discharge Data - Discharge Medication Prescriptions: Oxycodone HCl/Acetaminophen [Percocet 5-325 mg Tablet] 1 tab PO Q4HP PRN #20 tablet PRN Reason: Hydrochlorothiazide [Hydrodiuril 25 mg Tablet] 25 mg PO DAILY #7 tablet Ibuprofen [Motrin 800 mg Tablet] 800 mg PO Q6 #60 tablet Home Medications: [id number]/Iron Fum/Folic/Docusate [ 19 Tablet] 1 each PO DAILY 01/07/18 Hydrochlorothiazide [Hydrodiuril 25 mg Tablet] 25 mg PO DAILY #7 tablet 05/08/18 Ibuprofen [Motrin 800 mg Tablet] 800 mg PO Q6 #60 tablet 05/08/18 Oxycodone HCl/Acetaminophen [Percocet 5-325 mg Tablet] 1 tab PO Q4HP PRN #20 tablet 05/08/18 Gestational Age: 41.1 Reason(s) for Admission: Induction of Labor Procedures: NST, Ultrasound Intrapartum Procedure(s): : Low Cervical, Transverse Intrapartum Procedure Note: arrest of dilation - Data Baby 1 Female at 1 minute: 8 at 5 minutes: 9 Weight: 3.203 kg Home with Mother: Yes Complications: No - Diagnosis Test Laboratory: Temp Pulse Resp BP Pulse Ox 98.3 F 83 18 148/96 H 97 05/08/18 04:12 05/08/18 07:59 05/08/18 07:59 05/08/18 07:59 05/08/18 07:59 05/03/18 05/03/18 05/04/18 20:30 20:40 16:35 RBC 3.39 L 3.64 L Hgb 9.6 L 10.3 L Hct 28.6 L 30.4 L Urine Opiates Screen NEGATIVE 05/05/18 05/06/18 05/06/18 10:38 06:42 18:40 RBC 3.56 L 2.66 L 2.66 L Hgb 9.9 L 7.4 L D 7.5 L Hct 29.8 L 22.3 L 22.4 L Urine Opiates Screen - Discharge information/Instructions Discharge Activity: Activity As Tolerated, No Lifting Over 10 Pounds, No Lifting/Push/Pulling, Pelvic Rest Discharge Diet: As Tolerated, Regular Disposition: HOME, SELF-CARE Follow up with: [facility] in: 3, Weeks - check BP
[2018-05-08] MEDS ORDERED: HYDROCHLOROTHIAZIDE 25 MG TABLET PO ONE (10:30)
[2018-05-08 11:14] VITALS: BP 140/80
[2018-05-09] MEDS ORDERED: HYDROCHLOROTHIAZIDE 25 MG TABLET PO SCH (10:00)
== END 2018-05-08 13:20 | disposition home or self-care (01) | DRG 786 ==
LOC: LR 20:12 → 2N 05-05 17:00
PROVIDERS: ADMIT Obstetrics & Gynecology; ATTEND Obstetrics & Gynecology
PROC: 4A1HXCZ Monitoring of Products of Conception, Cardiac Rate, External Approach (ICD-10-PCS; 2018-05-03)
PROC: 10907ZC Drainage of Amniotic Fluid, Therapeutic from Products of Conception, Via Natural or Artificial Opening (ICD-10-PCS; 2018-05-04)
PROC: 10D00Z1 Extraction of Products of Conception, Low, Open Approach (ICD-10-PCS; principal; 2018-05-05)
PROC: 3E0P7VZ Introduction of Hormone into Female Reproductive, Via Natural or Artificial Opening (ICD-10-PCS; 2018-05-05)
PROC: 3E033VJ Introduction of Other Hormone into Peripheral Vein, Percutaneous Approach (ICD-10-PCS; 2018-05-05)
DX: O62.1 Secondary uterine inertia (principal); O41.1230 Chorioamnionitis, third trimester, not applicable or unspecified; O75.2 Pyrexia during labor, not elsewhere classified; O48.0 Post-term pregnancy; O76 Abnormality in fetal heart rate and rhythm complicating labor and delivery; Z87.891 Personal history of nicotine dependence; Z3A.41 41 weeks gestation of pregnancy; Z37.0 Single live birth
CPT/HCPCS: 1961; 36415; 80053; 80307; 81005; 82570; 83615; 84156; 84550; 85025; 85027; 86592; 86850; 86900; 86901; 88307; 90707; 94760; 94799; C1758; J0131; J0290; J0690; J1200; J1885; J2210; J2250; J2270; J2300; J2370; J2405; J2550; J2590; J3010; J3490